=== PATIENT | male | born 1985 | race Caucasian/White ===

== ENCOUNTER 2018-12-16 09:41 | Emergency (ER) | payer OTHER ==
[~2018-12-16] VITALS: Ht 175.2 cm; Wt 69.0 kg
[~2018-12-16 09:41] MED LIST: HYDROCODON-ACE1 EAC7 PO; IBUPROFEN 600600 M1 PO; K-DUR 20 MEQ T20 MEQ PO; NOHOMEMEDICATIONS; NORCO 5-325 TA1 EACH PO; ONDANSETRON HCL8 MG PO; PERCOCET 5-3251 EACH PO; TAMSULOSIN HCL0.4 M1 PER TUBE
[2018-12-16 11:11] VITALS: BP 118/70
== END 2018-12-16 11:12 | disposition home or self-care (01) ==
LOC: M.ERS 09:41
DX: S60.221A Contusion of right hand, initial encounter (principal); F17.200 Nicotine dependence, unspecified, uncomplicated; Z88.5 Allergy status to narcotic agent; W01.190A Fall on same level from slipping, tripping and stumbling with subsequent striking against furniture, initial encounter; Y93.89 Activity, other specified; Y92.89 Other specified places as the place of occurrence of the external cause; Y99.8 Other external cause status